=== PATIENT | male | born 1975 | race Caucasian/White ===

== ENCOUNTER 2016-12-12 10:42 | Emergency (ER) | payer OTHER | END 2016-12-12 11:55 | disposition home or self-care (01) | LOC: ER 10:42 | DX: J40 Bronchitis, not specified as acute or chronic (principal); R05 Cough; M79.1 Myalgia; F17.210 Nicotine dependence, cigarettes, uncomplicated | CPT/HCPCS: 87070; 87400; 87880; 96372; 99283-25; J2930 ==